=== PATIENT | female | born 1995 | race Caucasian/White ===

== ENCOUNTER 2017-03-14 12:02 | Emergency (ER) | payer BC ==
[~2017-03-14] VITALS: Ht 154.9 cm; Wt 65.9 kg
[~2017-03-14 12:02] MED LIST: VENTOLIN0.09 MG IH; ZOFRAN 4MG T4 MG/TAB PO
[2017-03-14 12:05] VITALS: BP 126/79; TEMP 98
[2017-03-14 14:04] LABS: BASO % 0.5 % (0.0-2.0); EOS # 0.2 (0.0-0.7); EOS % 3.3 % (0-4.0); GRAN # 2.6 (1.4-6.5); GRAN % 44.4 % (42.2-75.2); HEMATOCRIT 41.4 % (35.0-45.0); HEMOGLOBIN 14.4 g/dl (12.0-15.0); LYMPH # 2.6 (1.2-3.4); LYMPH % 44.3 % (20.0-51.0); MEAN CELL VOLUME 89 fl (80.0-95.0); MEAN CORPUSCULAR HEMOGLOBIN 31 pg (26.0-32.0); MEAN CORPUSCULAR HGB CONC 35 g/dl (33.0-37.0); MEAN PLATELET VOLUME 10.3 fl (7.4-10.4); MONO # 0.4 (0.1-0.6); MONO % 7.3 % (1.7-9.3); PLATELET COUNT 262 K/mm3 (130-400); RED BLOOD COUNT 4.65 M/mm3 (4.10-5.30); REDCELL DISTRIBUTION WIDTH-CV 11.9 % (11.5-14.5)
[2017-03-14 14:20] LABS: ALANINE AMINOTRANSFERASE 23 U/L (9-52); ALBUMIN 4.6 gm/dL (3.5-5.0); ALKALINE PHOSPHATASE 45 U/L (50-136); ANION GAP 9 mmol/L (7-16); AST,SGOT 18 U/L (15-37); BILIRUBIN,TOTAL 1.5 mg/dL (0.0-1.0); BLOOD UREA NITROGEN 14 mg/dL (7-17); CALCIUM 9.3 mg/dL (8.4-10.2); CARBON DIOXIDE 21 mmol/L (22-30); CHLORIDE 107 mmol/L (98-107); CREATININE, serum 0.64 mg/dL (0.52-1.25); GLUCOSE 91 mg/dL (74-106); POTASSIUM 4.1 mmol/L (3.4-5.0); SODIUM 137 mmol/L (137-145); TOTAL PROTEIN 8.1 gm/dL (6.4-8.2)
[2017-03-14 14:22] LABS: C-REACTIVE PROTEIN < 0.5 mg/dL (0.0-0.9)
[2017-03-14 14:43] VITALS: PULSE 73
== END 2017-03-14 14:45 | disposition home or self-care (01) ==
LOC: COL.ER 12:02
PROVIDERS: Physician Assistant
DX: B27.90 Infectious mononucleosis, unspecified without complication (principal)

== ENCOUNTER → 2017-12-13 | Outpatient (CLI) | payer BC | LOC: COL.RAD 08:55 | DX: N39.0 Urinary tract infection, site not specified (principal) ==

== ENCOUNTER 2018-07-15 12:13 | Emergency (ER) | payer OTHER, BC ==
[~2018-07-15] VITALS: Ht 154.9 cm; Wt 65.9 kg
[2018-07-15 13:40] VITALS: BP 112/70; PULSE 85; TEMP 98.3
== END 2018-07-15 13:40 | disposition home or self-care (01) ==
LOC: COL.ER 12:13
DX: S09.90XA Unspecified injury of head, initial encounter (principal); V43.52XA Car driver injured in collision with other type car in traffic accident, initial encounter

== ENCOUNTER → 2019-10-18 | Outpatient (CLI) | payer OTHER, BC | LOC: ZCOL.LAB 17:33 | DX: Z20.828 Contact with and (suspected) exposure to other viral communicable diseases (principal) ==